=== PATIENT | male | born 1970 | race Caucasian/White ===

== ENCOUNTER 2020-02-17 08:44 | Emergency (ER) | payer BC ==
[~2020-02-17] VITALS: Ht 198.1 cm; Wt 111.1 kg
[2020-02-17] MEDS ORDERED: ZESTRIL20 MG PO (08:59)
[2020-02-17] MEDS ORDERED: AMLODIPINE BESY10 MG PO (09:17)
[2020-02-17] MEDS ORDERED: NAPROSYN500 MG PO (10:17)
[2020-02-17] MEDS ORDERED: NORFLEX100 MG PO (10:17)
[2020-02-17 10:56] VITALS: BP 144/95
--- NOTE | 2020-02-17 14:40 | EKG ---
[facility] [place] [address] ELECTROCARDIOGRAM REPORT Name: GLORIA CAIN Room #: [facility]P [facility].#: [id number] Admission: 02/17/20 Attend Phys: Discharge: 02/17/20 Date of : 72 Report #: [id number] THIS REPORT FOR: cc: TUCKER Gerard family physician/PCP TUCKER - Rajani family physician/PCP Edwin Trejo MD [facility] ~ THIS REPORT FOR: //name// [facility] ED Test Date: 2020-02-17 Test Time: 09:28:42 Pat Name: GLORIA CAIN Department: Room: Gender: Auto Body Mechanic: : 1970 Requested By: Bubba Blacno Order Number: [id number] : Edwin Trejo Measurements Intervals [place] Rate: 73 P: 20 MD: 172 QRS: -44 QRSD: 115 T: 20 QT: 410 QTc: 452 Interpretive Statements Sinus rhythm Nonspecific IVCD with LAD Left ventricular hypertrophy No previous ECG available for comparison Electronically Signed On 02-17-2020 14:40:30 ADMINISTRATIVE CLERK by Edwin Trejo [email or web address] <ELECTRONICALLY SIGNED> By: Edwin Trejo MD, FACC 02/17/20 1440 7 7 Edwin Trejo MD, [facility] /EPI
== END 2020-02-17 10:56 | disposition home or self-care (01) ==
LOC: ER 08:44
DX: I10 Essential (primary) hypertension (principal); R51.9 Headache, unspecified; M54.2 Cervicalgia; Z79.899 Other long term (current) drug therapy